=== PATIENT | female | born 1965 ===

== ENCOUNTER 2021-10-22 09:29 | Outpatient (REF) | payer OTHER, SELFPAY ==
--- NOTE | 2021-10-22 10:43 | MHC.AU.MED ---
Medical Clearance for Hearing Instrumentation Date: 10/22/21 Patient Name: Leandra Callejas Date of : 1965 Referring Provider: Elena Angeles MD We have seen your patient on 10/22/21 and have determined that they are a candidate for amplification (See accompanying report). Specifically, they would benefit from: Hearing aid use in both ears There is a statute that addresses Medical Evaluation Requirements prior to fitting a patient with a hearing aid. According to [place] statute 265 CMR:6.03(1), (a) General. Except as provided in 265 CMR 6.03(1)(b), a biology adjunct instructor shall not sell a hearing aid unless the prospective user has presented to the biology adjunct instructor a written statement signed by a licensed physician that states that the patient's hearing loss has been medically evaluated and the patient may be considered a candidate for a hearing aid. The medical evaluation must have taken place within the preceding six months. Please note: Due to the [place] Statute referenced above, we cannot accept a signature other than that of a licensed physician. HOUSE MANAGER and PA signatures cannot be accepted. I am in agreement with the above recommendation. There is no medical contraindication for hearing instrumentation. Physician Signature Date Physician Name (Printed)
--- NOTE | 2021-10-22 10:43 | MHC.AU.HAS ---
Hearing Aid Evaluation Date of Visit: 10/22/21 Agile Qa Tester Used: Romanian- By Phone Historical Information: Description of Hearing: Mild sensorineural hearing loss bilaterally Summary: Patient was seen for audiological evaluation (see separate report for details). Patient reports her hearing difficulties have been starting to impact daily life and communication. Her tinnitus is also bothersome during the day. She feels she is ready to try amplification. Hearing Aid Prescription: Based on the individual?s shared listening needs, communication environments, dexterity, desire for connectivity, and personal preferences, the following prescription for amplification has been made: Right ear: Repulping Supervisor: Phonak Model: Audeo P70-R Battery Size: Rechargeable Color: Black Spice Blender: 1M Left ear: Repulping Supervisor: Phonak Model: [place]udeo P70-R Battery Size: Rechargeable Color: Black Spice Blender: 1M Action Taken/Action Needed: Medical Clearance to be requested from PCP/ENT Hearing Instrument Fitting to be scheduled when materials arrive Primary Diagnosis: H90.3 Bilateral Sensorineural Hearing Loss Signature: Provider: Leisa Roy, MICK-A
--- NOTE | 2021-10-22 10:44 | MHC.AU.ANO ---
Adult Audiological Evaluation Date of Visit: 10/22/21 Hospice Clinical Manager Used: Japanese- By Phone Reason for Appointment: Patient has been experiencing increased hearing difficulty and feels it is starting to impact daily life and communication. She has been asking people for repetition frequently. She also experiences constant tinnitus in both ears that is sometimes bothersome. Does patient feel they have a hearing loss?: Yes If Yes, Which Ear?: Both Ears Hearing Handicap Inventory: HHIE SCORE: 20 Based on HHIE score, patient has: Mild to moderate perceived hearing handicap Ear History: Ear Deformity: None Reported Recent Ear Drainage: None Reported Recent Ear Pain: None Reported Family History of Hearing Loss?: Recent Ear Infections: None Reported Ear Infections in Childhood: None Reported History of Ear Wax Buildup: Both Ears Previous Ear Surgery: None Reported Bothersome Tinnitus/Ringing/Noises in Ears: Both Ears Ear used on the phone: Left Ear Blocked/Full Sensation in Ear(s): None Reported History of occupational noise exposure?: No History: No Medical History: Medical History: High Blood Pressure Otoscopy: Right Ear: Unremarkable Left Ear: Unremarkable Tympanometry: Tympanometry performed due to: To assess integrity of the middle ear system Right Ear: Negative Middle Ear Pressure (Type C) Left Ear: Normal Middle Ear System (Type A) Hearing Evaluation: Transducer(s) Used: Insert Earphones Method: Conventional Audiometry Stimuli Used: Pure Tones Right Ear: Description of Hearing: Mild sensorineural hearing loss Left Ear: Description of Hearing: Mild sensorineural hearing loss Speech Recognition Threshold (SRT): Method Used: Recorded Lists Stimuli Used: Japanese Trisyllable Words Right Ear: 35 dBHL Left Ear: 30 dBHL Word Discrimination: Method: Recorded Lists Word Lists Used: Lista Bisil?bica (Japanese) Right Ear: 100% at 65 dBHL Left Ear: 100% at 65 dBHL Recommendations: Audiological re-evaluation in one year. Trial with amplification is recommended. Medical clearance from a physician is required before fitting. See Hearing Aid Evaluation report for more information. Negative pressure was noted in the patient's right ear. She reports that was recently sick, but is getting better. If she experiences any pain or discomfort in the right ear, she should consult her PCP. Diagnosis: Primary Diagnosis: H90.3 Bilateral Sensorineural Hearing Loss Signature: Provider: Leisa Roy, CCC-A
== END 2021-10-22 09:30 | disposition home or self-care (01) ==
LOC: HO.SH 09:29
PROVIDERS: Visit Provider Internal Medicine
DX: Z01.118 Encounter for examination of ears and hearing with other abnormal findings (principal); Z46.1 Encounter for fitting and adjustment of hearing aid; H90.3 Sensorineural hearing loss, bilateral
CPT/HCPCS: 92557; 92567; 92591; V5010

== ENCOUNTER 2022-02-04 14:27 | Outpatient (REF) | payer OTHER, SELFPAY | END 2022-02-04 14:28 | disposition home or self-care (01) | LOC: HO.HAP 14:27 | PROVIDERS: Visit Provider Internal Medicine | DX: Z46.1 Encounter for fitting and adjustment of hearing aid (principal); H90.3 Sensorineural hearing loss, bilateral | CPT/HCPCS: V5011; V5020; V5160; V5261 ==